=== PATIENT | male | born 1990 | race African-American/Black ===

== ENCOUNTER 2017-03-01 12:04 | Emergency (ER) | payer OTHER ==
[2017-03-01 12:17] VITALS: BP 155/87; PULSE 87; RESP 18; TEMP 99
--- NOTE | 2017-03-01 13:09 | ED ---
General Adult HPI - General Chief complaint: Urogenital Stated complaint: groin pain Time Seen by Provider: 03/01/17 12:20 Source: patient, RN notes reviewed Mode of arrival: ambulatory Limitations: no limitations - History of Present Illness Initial comments: This is a 26-year-old male who presents emergency Department with right testicle pain and enlargement over the last month. Patient states he's been out of the area for the month in the and he just got home 2 days ago so he thought he would have it checked out. Patient states he has not had any sexual contact with any new partners for quite a while. Patient denies any discharge. Patient denies any inguinal pain. Patient denies any dysuria hematuria urinary frequency. Patient denies any recent fever chills per patient denies any abdominal pain. - Related Data Home Medications Medication Instructions Recorded Confirmed No Known Home Medications [No 03/01/17 03/01/17 Known Home Medications] Allergies Allergy/AdvReac Type Severity Reaction Status Date / Time G6PD DEFICIENT Allergy Unknown Uncoded 03/01/17 13:20 Childhood Review of Systems ROS Statement: Those systems with pertinent positive or pertinent negative responses have been documented in the HPI. ROS Other: All systems not noted in ROS Statement are negative. Past Medical History Additional Past Medical History / Comment(s): g6pd deficient(blood disorder) History of Any Multi-Drug Resistant Organisms: None Reported Past Surgical History: Orthopedic Surgery Additional Past Surgical History / Comment(s): elbow Past Psychological History: No Psychological Hx Reported Smoking Status: Light tobacco smoker Past Alcohol Use History: Occasional Past Drug Use History: None Reported General Exam - General Exam Comments Initial Comments: GENERAL Patient is well-developed and well-nourished. Patient is in mild distress. EYES Patient's pupils are equal and round. Extraocular motion is intact SKIN Unremarkable NEURO The patient is alert and oriented 3 PYSCH Patient has normal interpersonal interactions. GENITALIA Left testicle is normal and right testicle is enlarged considerably and tender Limitations: no limitations Course Vital Signs 03/01/17 12:12 Temperature 99.0 F Pulse Rate 87 Respiratory 18 Rate Blood Pressure 155/87 O2 Sat by Pulse 98 Oximetry Medical Decision Making - Medical Decision Making Ultrasound shows a 4.3 x 3.9 x 3.1 cm right testicular mass. I spoke Dr. Dixon he wants to see the patient at 940 tomorrow morning. Chest x-ray was done shows no acute abnormality. Disposition Clinical Impression: Testicular mass Disposition: HOME SELF-CARE Condition: Good Additional Instructions: Follow up with Dr Breaux tomorrow 03/02/17 at 9:40 am. Referrals: None,Stated [Primary Care Provider] - 1-2 days Antonio Breaux MD [STAFF PHYSICIAN] - 1-2 days Time of Disposition: 15:32
--- NOTE | 2017-03-01 14:21 | US ---
EXAMINATION TYPE: US scrotum with doppler. Grayscale and color Doppler Duplex imaging performed of t he scrotum. DATE OF EXAM: 03/01/2017 COMPARISON: NONE CLINICAL HISTORY: Pain. Right testicular pain and swelling EXAM MEASUREMENTS: TESTICLES: Right Testicle: 5.7 x 3.6 x 4.0 cm Left Testicle: 3.6 x 2.0 x 2.2 cm EPIDIDYMIS HEAD: Right Epididymis: 1.0 x 1.3 x 1.2 cm Left Epididymis: 0.9 x 1.0 x 1.5 cm Doppler performed to assess for testicular vascularity; good bilateral color flow and waveforms are s een. There is no evidence of testicular torsion. Presence of hydroceles: no Presence of varicoceles: no Right testicle: 4.6 x 3.1 x 3.9cm hypoechoic solid vascular mass IMPRESSION: 1. There is a solid-appearing mass in the right testicle measuring 4.6 x 3.1 x 3.9 cm suspicious for malignancy.
--- NOTE | 2017-03-01 14:56 | XR ---
EXAMINATION TYPE: XR chest 2V DATE OF EXAM: 03/01/2017 COMPARISON: NONE HISTORY: Testicular cancer with difficulty in breathing. TECHNIQUE: Frontal and lateral views of the chest are obtained. FINDINGS: There is no focal air space opacity, pleural effusion, or pneumothorax seen. The cardiac silhouette size is within normal limits. The osseous structures are intact. IMPRESSION: No acute cardiopulmonary process.
== END 2017-03-01 15:52 | disposition home or self-care (01) ==
LOC: EC 12:04
DX: N50.9 Disorder of male genital organs, unspecified (principal); F17.200 Nicotine dependence, unspecified, uncomplicated; Z88.8 Allergy status to other drugs, medicaments and biological substances
CPT/HCPCS: 36415; 71020; 76870; 82105; 93975; 99284

== ENCOUNTER 2017-03-08 10:50 | Day surgery (SDC) | payer OTHER ==
[2017-03-03 14:53] VITALS: BMI 25.7
[~2017-03-08 10:50] MED LIST: DEXAMETHASONE SOD PHOSPHATE 10 MG/ML 1 ML VIAL IV ONE; LACTATED RINGERS 1,000 ML IV SCH; LIDOCAINE 1% 20 ML VIAL (10MG/ML) FOR IV START INTRADERMA PRN; MIDAZOLAM 2 MG/2 ML VIAL IV PRN; ONDANSETRON 4 MG/2 ML VIAL IVP ONE; SCOPOLAMINE 1.5MG/72HR PATCH TRANSDERM ONE; ceFAZolin 2 GM in SODIUM CHLORIDE 0.9% 100 ML IVPB ONE
[2017-03-08 11:30] LABS: Basophils % (A) 1 %; CH 32.4; Eosinophils # (A) 0.1 k/uL (0-0.7); Eosinophils % (A) 2 %; HDW 2.19; HGB 16.1 gm/dL (13.0-17.5); Luc # (Auto) 0.12; Luc % (Auto) 2; Lymphocytes # (A) 1.4 k/uL (1.0-4.8); Lymphocytes % (A) 24 %; MCH 31.5 pg (25.0-35.0); MCHC 32.9 g/dL (31.0-37.0); MCV 95.7 fL (80.0-100.0); Mean Platelet Volume 7.3; Monocytes # (A) 0.4 k/uL (0-1.0); Monocytes % (A) 6 %; Neutrophils # (A) 3.8 k/uL (1.3-7.7); Neutrophils % (A) 65 %; RBC 5.12 m/uL (4.30-5.90); RDW 12.9 % (11.5-15.5); WBC 5.8 k/uL (3.8-10.6)
[2017-03-08] MEDS ORDERED: BUPIVACAINE (PF) 0.5% 30 ML VIAL SQ ONE (12:39)
--- NOTE | 2017-03-08 13:01 | P.OP ---
Date of Procedure: 03/08/17 Preoperative Diagnosis: Right testicular mass Postoperative Diagnosis: Right testicular cancer Procedure(s) Performed: Right radical orchidectomy Implants: Anesthesia: FLAVIO Surgeon: Antonio Breaux Estimated Blood Loss (ml): 10 Pathology: other (Testicle and cord, right) Condition: stable Disposition: PACU Indications for Procedure: The patient is a 27-year-old gentleman who presented with a two-week history of a right testicular mass. He is seen in the emergency room. An ultrasound showed a solid right testicular mass. His examination confirmed that. He comes for radical orchiectomy. His markers are pending. Operative Findings: Description of Procedure: Patient is brought to the operating suite. He is given a general endotracheal anesthesia. A sterile prep and drape was administered. A right inguinal incision is made. I dissected over the external ring. The cord is surrounded and clamped. I then evaginated the testicle into the skin inguinal canal. I detached the gubernaculum with electrocautery. I then followed the cord structure up to the internal inguinal ring. It is divided into 2 sections vascular and the vas. Each section is clamped with a hemostat and then oversewn with a 2-0 silk. The cord and testicle are transected and removed from the wound. I then closed the external oblique fascia with interrupted 2-0 Vicryl. I protect the ilial inguinal nerve. Subcutaneous tissue with a 3-0 chromic and the skin with a 4-0 Vicryl. 10 mL of half percent Marcaine plain block is administered. The patient's awake and returned recovery in good condition The testicle was opened on the back table and was consistent with a testicular cancer. Pending the pathology as to final recommendations.
[2017-03-08 13:11] VITALS: TEMP 97.2
[2017-03-08] MEDS: HYDROmorphone 1 MG/ML 1 ML SYRINGE IVP PRN ×2 (13:14→13:22)
[2017-03-08 14:08] VITALS: RESP 18
[2017-03-08] MEDS ORDERED: HYDROcodone/APAP 5-325MG 1 EACH TAB PO ONE ×2 (14:30→15:31)
[2017-03-08 15:50] VITALS: BP 144/85; PULSE 63
== END 2017-03-08 16:09 | disposition home or self-care (01) ==
LOC: OR 10:50
PROVIDERS: ATTEND Urology
DX: C62.91 Malignant neoplasm of right testis, unspecified whether descended or undescended (principal); D55.0 Anemia due to glucose-6-phosphate dehydrogenase [G6PD] deficiency; F17.200 Nicotine dependence, unspecified, uncomplicated; I10 Essential (primary) hypertension
CPT/HCPCS: 54530; 85025; 88342; 88309; 86788; 88341; J1100; J0690; J2405; J1170

== ENCOUNTER 2017-03-09 22:24 | Emergency (ER) | payer OTHER ==
[2017-03-09] MEDS ORDERED: SODIUM CHLORIDE 0.9% 500 ML IV STA (23:17)
[2017-03-09] MEDS ORDERED: HYDROmorphone 1 MG/ML 1 ML SYRINGE IVP STA (23:17)
--- NOTE | 2017-03-09 23:44 | ED ---
General Adult HPI - General Chief complaint: Urogenital Stated complaint: Post op issues Time Seen by Provider: 03/09/17 23:13 Source: patient, RN notes reviewed Mode of arrival: ambulatory Limitations: no limitations - History of Present Illness Initial comments: 27 yo male presents to the ER with cc of right testicular pain. Patient recently had his right testicle removed yesterday by Dr. Dixon. Patient states this was for cancer. Patient states today he noticed that his testicle is very swollen and painful. Patient states that fever chills. Patient denies any changes in urination. Patient states that he was concerned due to his pain and swelling to the thought that he should be evaluated. Patient states is not currently having any other symptoms at this time.Patient denies any recent fever , chills, shortness of breath, chest pain, back pain, abdominal pain, nausea vomiting, numbness or tingling, dysuria or hematuria, constipation or diarrhea, headaches or visual changes, or any other current symptoms. - Related Data Previous Rx's Medication Instructions Recorded HYDROcodone/APAP 5-325MG [Points 1 tab PO Q4HR PRN #20 tab 03/08/17 5-325] Hydrocodone/Acetaminophen [Points 2 each PO Q6HR PRN #20 tab 03/10/17 5-325] Allergies Allergy/AdvReac Type Severity Reaction Status Date / Time G6PD DEFICIENT Allergy Unknown Uncoded 03/09/17 22:46 Childhood Review of Systems ROS Statement: Those systems with pertinent positive or pertinent negative responses have been documented in the HPI. ROS Other: All systems not noted in ROS Statement are negative. 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) certain things can trigger anemia, patient states only issue he ever had was with red wine History of Any Multi-Drug Resistant Organisms: None Reported Past Surgical History: Orthopedic Surgery Additional Past Surgical History / Comment(s): elbow, wisdom teeth Past Anesthesia/Blood Transfusion Reactions: No Reported Reaction Past Psychological History: No Psychological Hx Reported Smoking Status: Current some day smoker Past Alcohol Use History: Occasional Past Drug Use History: None Reported - Past Family History Mother Family Medical History: Cancer General Exam Limitations: no limitations General appearance: alert, in no apparent distress ENT exam: Present: normal exam, mucous membranes moist Neck exam: Present: normal inspection. Absent: tenderness, meningismus, lymphadenopathy Respiratory exam: Present: normal lung sounds bilaterally. Absent: respiratory distress, wheezes, rales, rhonchi, stridor Cardiovascular Exam: Present: regular rate, normal rhythm, normal heart sounds. Absent: systolic murmur, diastolic murmur, rubs, gallop, clicks GI/Abdominal exam: Present: soft, normal bowel sounds. Absent: distended, tenderness, guarding, rebound, rigid exam: Present: normal inspection (Swollen to the right side to the right side ), testicular tenderness (Right), scrotal swelling (rigfht), vertical testicular lie, circumcision Extremities exam: Present: normal inspection, full ROM, normal capillary refill. Absent: tenderness, pedal edema, joint swelling, calf tenderness Back exam: Present: normal inspection Neurological exam: Present: alert, oriented X3, CN II-XII intact Psychiatric exam: Present: normal affect, normal mood Skin exam: Present: warm, dry, intact, normal color. Absent: rash Course Vital Signs 03/09/17 22:38 Temperature 98.7 F Pulse Rate 92 Respiratory 18 Rate Blood Pressure 140/77 O2 Sat by Pulse 96 Oximetry Medical Decision Making - Medical Decision Making 27-year-old male presents with testicular pain after surgery. At this time we discussed labs and US. We discussed appears to be a hematoma following his procedure. We discussed ice and elevation. We discussed contacting urologist in am for re-eval. We discussed return parameters and questions. Patient in agreement with plan. All questions answered. Patient will be discharged home. - Lab Data Result diagrams: 03/10/17 00:00 03/10/17 00:00 Lab Results 03/10/17 03/10/17 03/10/17 Range/Units 00:00 00:00 00:00 WBC 10.5 (3.8-10.6) k/uL RBC 4.65 (4.30-5.90) m/uL Hgb 15.3 (13.0-17.5) gm/dL Hct 43.8 (39.0-53.0) % MCV 94.2 (80.0-100.0) fL MCH 32.9 (25.0-35.0) pg MCHC 34.9 (31.0-37.0) g/dL RDW 12.6 (11.5-15.5) % Plt Count 201 (150-450) k/uL Neutrophils % 68 % Lymphocytes % 23 % Monocytes % 6 % Eosinophils % 1 % Basophils % 0 % Neutrophils # 7.2 (1.3-7.7) k/uL Lymphocytes # 2.4 (1.0-4.8) k/uL Monocytes # 0.6 (0-1.0) k/uL Eosinophils # 0.1 (0-0.7) k/uL Basophils # 0.0 (0-0.2) k/uL Sodium 139 (137-145) mmol/L Potassium 3.8 (3.5-5.1) mmol/L Chloride 101 (98-107) mmol/L Carbon Dioxide 28 (22-30) mmol/L Anion Gap 10 mmol/L BUN 14 (9-20) mg/dL Creatinine 1.00 (0.66-1.25) mg/dL Est GFR (MDRD) Af Amer >60 (>60 ml/min/1.73 sqM) Est GFR (MDRD) Non-Af >60 (>60 ml/min/1.73 sqM) Glucose 92 (74-99) mg/dL Calcium 9.0 (8.4-10.2) mg/dL Total Bilirubin 0.5 (0.2-1.3) mg/dL AST 48 (17-59) U/L ALT 43 (21-72) U/L Alkaline Phosphatase 68 (38-126) U/L Total Protein 6.6 (6.3-8.2) g/dL Albumin 4.1 (3.5-5.0) g/dL Urine Color Yellow Urine Appearance Clear (Clear) Urine pH 7.0 (5.0-8.0) Ur Specific Champion 1.013 (1.001-1.035) Urine Protein Negative (Negative) Urine Glucose (UA) Negative (Negative) Urine Ketones Negative (Negative) Urine Blood Negative (Negative) Urine Nitrite Negative (Negative) Urine Bilirubin Negative (Negative) Urine Urobilinogen 3.0 (<2.0) mg/dL Ur Leukocyte Esterase Negative (Negative) Disposition Clinical Impression: Scrotal hematoma Disposition: HOME SELF-CARE Condition: Stable Instructions: Hematoma (ED) Additional Instructions: Please use medications as prescribed. If symptoms worsen or change return to ER. Contact your urologist in the AM for follow up. Prescriptions: Hydrocodone/Acetaminophen [Points 5-325] 2 each PO Q6HR PRN #20 tab PRN Reason: Pain Referrals: Antonio Breaux MD [STAFF PHYSICIAN] - 1-2 days Time of Disposition: 01:49
[2017-03-10 00:14] LABS: Basophils % (A) 0 %; CH 31.9; Eosinophils # (A) 0.1 k/uL (0-0.7); Eosinophils % (A) 1 %; HCT 43.8 % (39.0-53.0); HDW 2.22; HGB 15.3 gm/dL (13.0-17.5); Luc # (Auto) 0.14; Luc % (Auto) 1; Lymphocytes # (A) 2.4 k/uL (1.0-4.8); Lymphocytes % (A) 23 %; MCH 32.9 pg (25.0-35.0); MCHC 34.9 g/dL (31.0-37.0); MCV 94.2 fL (80.0-100.0); Mean Platelet Volume 7.5; Monocytes # (A) 0.6 k/uL (0-1.0); Monocytes % (A) 6 %; Neutrophils # (A) 7.2 k/uL (1.3-7.7); Neutrophils % (A) 68 %; RBC 4.65 m/uL (4.30-5.90); RDW 12.6 % (11.5-15.5); WBC 10.5 k/uL (3.8-10.6); WBC (Perox) 10.95
[2017-03-10 00:17] LABS: Appearance,Urine Clear (Clear); Bilirubin,Urine Negative (Negative); Glucose,Urine (UA) Negative (Negative); Ketones,Urine Negative (Negative); Leukocyte Esterase,Urine Negative (Negative); Nitrite,Urine Negative (Negative); Protein,Urine Negative (Negative); Specific Gravity,Urine 1.013 (1.001-1.035); UA Billing (MACRO vs. MICRO) CHEM
[2017-03-10 00:35] LABS: ALT 43 U/L (21-72); AST 48 U/L (17-59); Alkaline Phosphatase 68 U/L (38-126); Anion Gap 10 mmol/L; Blood Urea Nitrogen 14 mg/dL (9-20); Carbon Dioxide 28 mmol/L (22-30); Chloride 101 mmol/L (98-107); Glucose 92 mg/dL (74-99); Non-African American GFR(MDRD) >60 (>60 ml/min/1.73 sqM); Potassium 3.8 mmol/L (3.5-5.1); Sodium 139 mmol/L (137-145); Total Bilirubin 0.5 mg/dL (0.2-1.3); Total Protein 6.6 g/dL (6.3-8.2)
--- NOTE | 2017-03-10 01:22 | US ---
EXAM: US Scrotum CLINICAL HISTORY: Reason: Pain TECHNIQUE: Real-time ultrasound of the scrotum with color Doppler and image documentation. COMPARISON: Recent 03/01/17 scrotal ultrasound. FINDINGS: Right testicle: Interval right orchiectomy. There is now a large amount of avascular heterogeneous material with surrounding hypoechogenicity, within the enlarged right scrotal sac along with overlying scrotal soft tissue thickening. Left testicle: The left testis measures 3.9 x 2.4 x 1.9 cm and is uniform in appearance without evidence of torsion. Epididymides: Unremarkable on the left, absent on the right. Scrotum: Borderline left varicocele. IMPRESSION: 1. Large amount of heterogeneous material within the right scrotal sac with a surrounding rim of hypoechoic fluid, most likely representing the presence of a postoperative hematoma in this, with overlying scrotal soft tissue thickening. This could be correlated and followed clinically to resolution and/or guide further imaging follow-up as clinically indicated. 2. Normal appearance of the left testis, with note made of borderline left varicocele.
[2017-03-10] MEDS ORDERED: HYDROmorphone 1 MG/ML 1 ML SYRINGE IVP STA (01:57)
[2017-03-10 02:22] VITALS: BP 139/76; PULSE 81; RESP 16; TEMP 98.1
== END 2017-03-10 02:22 | disposition home or self-care (01) ==
LOC: EC 22:24
DX: N99.840 Postprocedural hematoma of a genitourinary system organ or structure following a genitourinary system procedure (principal); F17.200 Nicotine dependence, unspecified, uncomplicated; Z88.8 Allergy status to other drugs, medicaments and biological substances; Y83.8 Other surgical procedures as the cause of abnormal reaction of the patient, or of later complication, without mention of misadventure at the time of the procedure
CPT/HCPCS: 99284; 96374; 96376; 96361; 36415; 80053; 85025; 81003; 93975; 76870; J1170

== ENCOUNTER → 2017-03-10 | Outpatient (CLI) | payer OTHER ==
--- NOTE | 2017-03-10 14:55 | CT ---
EXAMINATION TYPE: CT abdomen pelvis w con DATE OF EXAM: 03/10/2017 COMPARISON: NONE HISTORY: Right testicular cancer status post removal. C 62.11, right side orchiectomy, G6PD deficient . CT DLP: 1089 mGycm Automated exposure control for dose reduction was used. TECHNIQUE: Helical acquisition of images was performed from the lung bases through the pelvis. CONTRAST: Performed with Oral Contrast and with IV Contrast, patient injected with 100 mL of Omnipaque 300. FINDINGS: LUNG BASES: No significant abnormality is appreciated. LIVER/GB: No significant abnormality is appreciated. PANCREAS: No significant abnormality is seen. SPLEEN: No significant abnormality is seen. ADRENALS: No significant abnormality is seen. KIDNEYS: No significant abnormality is seen. FREE AIR: No free air is visualized. RETROPERITONEAL ADENOPATHY: Just inferior to where the left renal vein meets the inferior vena cava there is a hypodense 2.8 x 2.3 x 4.1 cm mass. This is best visualized on series 2 image 27. This is j ust posterior to the duodenum. There is definite abutment and mass effect upon the inferior vena cava . No other abnormally enlarged retroperitoneal lymph nodes are identified. REPRODUCTIVE ORGANS: The prostate measures 4 cm in transverse dimension. There is a heterogeneous raymond earance to the right hemiscrotum which is felt to be related to a postoperative hematoma. There are s everal foci of subcutaneous air noted in the right groin felt to be postoperative. URINARY BLADDER: No significant abnormality is seen. PELVIC ADENOPATHY: None visualized. OSSEOUS STRUCTURES: No significant abnormality is seen. BOWEL: No significant abnormality is seen. OTHER: None IMPRESSION: JUST INFERIOR TO WHERE THE LEFT RENAL VEIN ENTERS INTO THE INFERIOR VENA CAVA THERE IS A 4 CM HYPODEN SE MASS. THIS IS HIGHLY CONCERNING FOR A FOCUS OF METASTASIS. NO OTHER SUSPICIOUS FOCI ARE IDENTIFIED ON THE CURRENT EXAMINATION. POSTOPERATIVE RIGHT HEMISCROTUM HEMATOMA.
== END ==
LOC: RADCTMAIN 13:58
PROVIDERS: ATTEND Urology
DX: C62.11 Malignant neoplasm of descended right testis (principal)
CPT/HCPCS: 74177; Q9967

== ENCOUNTER → 2017-03-29 | Outpatient (CLI) | payer OTHER ==
[2017-03-29 16:13] LABS: Basophils # (A) 0.1 k/uL (0-0.2); Basophils % (A) 1 %; CH 31.1; CHCM 32.8; Eosinophils # (A) 0.2 k/uL (0-0.7); Eosinophils % (A) 2 %; HCT 42.8 % (39.0-53.0); HDW 2.35; HGB 14.3 gm/dL (13.0-17.5); Luc # (Auto) 0.11; Luc % (Auto) 2; Lymphocytes # (A) 1.6 k/uL (1.0-4.8); Lymphocytes % (A) 23 %; MCH 31.8 pg (25.0-35.0); MCHC 33.4 g/dL (31.0-37.0); MCV 95.2 fL (80.0-100.0); Mean Platelet Volume 7.6; Monocytes # (A) 0.5 k/uL (0-1.0); Monocytes % (A) 7 %; Neutrophils # (A) 4.6 k/uL (1.3-7.7); Neutrophils % (A) 66 %; RBC 4.49 m/uL (4.30-5.90); RDW 13.1 % (11.5-15.5); WBC (Perox) 7.27
--- NOTE | 2017-03-29 16:28 | CT ---
EXAMINATION TYPE: CT chest w con DATE OF EXAM: 03/29/2017 COMPARISON: CT abdomen pelvis 03/10/2017 HISTORY: Patient has no chest complaints at time of service. Follow up study for known testicular CA . CT DLP: 609 mGycm Automated exposure control for dose reduction was used. CONTRAST: CT scan of the chest is performed with IV Contrast, patient injected with 100 mL of Omnipaque 300. FINDINGS: LUNGS: There is a nodule in the right upper lobe on axial image 22 measuring 5 to 6 mm in size which is not calcified. There is no pleural effusion or pneumothorax seen. The tracheobronchial tree is pa tent. MEDIASTINUM: There are no greater than 1 cm hilar or mediastinal lymph nodes. No pericardial effusi on is seen. AORTA: No additional significant abnormality is seen. OTHER: There is retroperitoneal adenopathy present.. IMPRESSION: Indeterminate right upper lobe pulmonary nodule. Retroperitoneal adenopathy compatible w ith patient's history of testicular carcinoma.
--- NOTE | 2017-03-29 16:58 | XR ---
EXAMINATION TYPE: XR chest 2V DATE OF EXAM: 03/29/2017 COMPARISON: Prior chest x-ray 03/01/[address] 03/29/2017 HISTORY: Testicular carcinoma, C 62.91 TECHNIQUE: Frontal and lateral views of the chest are obtained. FINDINGS: There is no focal air space opacity, pleural effusion, or pneumothorax seen. The cardiac silhouette size is within normal limits. The osseous structures are intact. IMPRESSION: No acute cardiopulmonary process. The small lung nodule seen on CT chest same date is no t evident on plain film.
== END | disposition home or self-care (01) ==
LOC: RADCTMAIN 15:44
PROVIDERS: ATTEND Internal Medicine Hematology & Oncology
DX: R91.1 Solitary pulmonary nodule (principal); C62.91 Malignant neoplasm of right testis, unspecified whether descended or undescended; R59.0 Localized enlarged lymph nodes
CPT/HCPCS: 85025; 71020; 71260; 36415; Q9967

== ENCOUNTER 2017-04-06 08:01 | Day surgery (SDC) | payer OTHER ==
[2017-03-31 10:02] VITALS: BMI 25.7
[~2017-04-06 08:01] MED LIST changes: -MIDAZOLAM 2 MG/2 ML VIAL IV PRN
[2017-04-06] MEDS ORDERED: HEPARIN SODIUM,PORCINE 5,000 UNIT in SODIUM CHLORIDE 0.9% 500 ML IV ONE (09:00)
[2017-04-06] MEDS ORDERED: MIDAZOLAM 2 MG/2 ML VIAL ONE (09:23)
[2017-04-06] MEDS ORDERED: fentaNYL (PF) 50 MCG/ML 2 ML AMP ONE (09:23)
[2017-04-06] MEDS ORDERED: LIDOCAINE 1% INJ 10MG/ML (20 ML MDV) ONE (09:23)
[2017-04-06] MEDS ORDERED: PROPOFOL 10 MG/ML 20 ML VIAL IV ONE (09:23)
[2017-04-06] MEDS ORDERED: HEPARIN SODIUM,PORCINE 100 UNIT/ML 5 ML VIAL IV ONE ×3 (09:50)
[2017-04-06] MEDS ORDERED: LIDOCAINE (PF) 10 MG/ML 2 ML VIAL SQ ONE ×3 (09:50)
[2017-04-06] MEDS ORDERED: IOHEXOL 350 MG/ML 50ML BOTTLE INJ ONE ×2 (09:51)
[2017-04-06] MEDS ORDERED: BUPIVACAINE (PF) 0.5% 30 ML VIAL SQ ONE ×3 (09:52)
[2017-04-06] MEDS ORDERED: LACTATED RINGERS 1,000 ML IV ONE (10:12)
[2017-04-06 10:58] VITALS: TEMP 97.2
[2017-04-06] MEDS: fentaNYL (PF) 50 MCG/ML 2 ML AMP IV PRN ×2 (11:09→11:21)
[2017-04-06 11:23] VITALS: RESP 18
--- NOTE | 2017-04-06 11:30 | XR ---
EXAMINATION TYPE: XR chest 1V confirm line [facility] DATE OF EXAM: 04/06/2017 COMPARISON: NONE INDICATION: Mediport placement TECHNIQUE: Single frontal view of the chest is obtained. FINDINGS: The heart size is normal. The pulmonary vasculature is normal. The lungs are clear. No pneumothorax is evident. A catheter is present on the right with the tip in the distal superior ve na cava region. IMPRESSION: 1. No acute pulmonary process. 2. No pneumothorax post line placement. Tip is in the distal superior vena cava near the right atrial junction.
[2017-04-06 12:26] VITALS: BP 121/58; PULSE 52
[2017-04-06] MEDS ORDERED: HYDROcodone/APAP 5-325MG 1 EACH TAB PO ONE (12:34)
--- NOTE | 2017-04-06 12:38 | FL ---
EXAMINATION TYPE: FL guided central line placemt HISTORY: Fluoroscopy time Impression: 1. Fluoroscopy support provided to the referring physician. 1 minute and one second fluoroscopy provi ded..
--- NOTE | 2017-04-06 14:05 | P.OP ---
Date of Procedure: 04/06/17 Preoperative Diagnosis: Testicular cancer need for chemotherapy Postoperative Diagnosis: Testicular cancer, need for chemotherapy Procedure(s) Performed: Right internal jugular Mediport placement with ultrasound guidance and fluoroscopy confirmation Implants: 8-[place] [employer] Mediport Anesthesia: GELACIOA Surgeon: Jennifer Barboza Estimated Blood Loss (ml): 15 Pathology: none sent Condition: stable Disposition: PACU Indications for Procedure: Operative Findings: 61 seconds of fluoroscopy Description of Procedure: The patient was brought to the operating room and placed in supine position with both arms tucked. A footboard was placed. Chlorhexidine was used to prep the neck followed by application of sterile drapes. A timeout was performed to verify correct patient and correct procedure. Patient was confirmed to receive perioperative IV antibiotics and VTE prophylaxis. An ultrasound was performed of the right neck to identify the carotid artery and internal jugular vein. The internal jugular vein was compressible and patent . Photodocumentation was made. Local anesthetic was infiltrated to create a field block. Seldinger technique was used and the internal jugular vein was accessed under direct ultrasound guidance. There was good backflow of dark venous blood. The guidewire was inserted and fluoroscopic images obtained to confirm the tip in SVC. The needle was removed followed by insertion of a dilator peel-away sheath. Local anesthetic was infiltrated along the inferior aspect of the right clavicle. A 2.5 cm skin incision was made and dissection was carried up to the pectoralis major muscle. A pocket was created for the port. The peel-away was cracked and removed with the port in appropriate position as confirmed by fluoroscopy and dye. A Tanisha was used to tunnel from the expected port site all the way up to the small incision in the neck and the catheter was pulled down into the cavity and then, once cut to size and attached to the port. The connector was clipped shut into position after which fluoroscopy was done positioning. We did use radiopaque dye for this roughly 10 mL. Once that was done subcutaneous tissue in the right pocket area was closed with 2-0 Vicryl. This was done after placing stay sutures with 3-0 Prolene for the port. Skin was closed with 4-0 Monocryl for the port site as well as the initial access site. Dermabond was applied slight pressure dressing in the neck as well as Telfa with Tegaderm for the right pectoral region. Total fluoroscopic time was 61 seconds. Prior to leaving the operating room fluoroscopy showed the catheter tip in the appropriate site patient will get a chest x-ray in recovery. X-ray done in recovery confirmed the tip of the MediPort catheter at the junction of the superior vena cava and the atrium there was no pneumothorax Plan - Discharge Summary New Discharge Prescriptions: New HYDROcodone/APAP 5-325MG [Jackson 5-325] 1 tab PO Q4HR PRN #10 tab PRN Reason: Pain No Action HYDROcodone/APAP 5-325MG [Jackson 5-325] 1 tab PO Q4HR PRN #20 tab PRN Reason: Pain Control Hydrocodone/Acetaminophen [Jackson 5-325] 2 each PO Q6HR PRN #20 tab PRN Reason: Pain Discharge Medication List HYDROcodone/APAP 5-325MG [Jackson 5-325] 1 tab PO Q4HR PRN #20 tab 03/08/17 [Rx] Hydrocodone/Acetaminophen [Jackson 5-325] 2 each PO Q6HR PRN #20 tab 03/10/17 [Rx] HYDROcodone/APAP 5-325MG [Jackson 5-325] 1 tab PO Q4HR PRN #10 tab 04/06/17 [Rx] Follow up Appointment(s)/Referral(s): Jennifer Barboza MD [STAFF PHYSICIAN] - 04/12/17 10:00 am Patient Instructions/Handouts: *Surgery [facility] - (Anesthesia) Discharge Instructions Outpatient Surgery Activity/Diet/Wound Care/Special Instructions: regular diet Shower in 24 hours Discharge Disposition: HOME SELF-CARE
== END 2017-04-06 13:16 | disposition home or self-care (01) ==
LOC: OR 08:01
PROVIDERS: ATTEND Surgery
DX: C62.91 Malignant neoplasm of right testis, unspecified whether descended or undescended (principal); G47.33 Obstructive sleep apnea (adult) (pediatric); F17.200 Nicotine dependence, unspecified, uncomplicated; Z99.89 Dependence on other enabling machines and devices; Z79.891 Long term (current) use of opiate analgesic; Z86.2 Personal history of diseases of the blood and blood-forming organs and certain disorders involving the immune mechanism; Z80.3 Family history of malignant neoplasm of breast; Z90.79 Acquired absence of other genital organ(s)
CPT/HCPCS: 77001; 36561; C1788; J2250; J2001 ×2; J1642; J1100; J0690; J2405; J3010; J2704; J1644; Q9967

== ENCOUNTER 2017-04-08 17:47 | Emergency (ER) | payer OTHER ==
[2017-04-08 18:13] VITALS: BP 124/60; PULSE 76; RESP 18; TEMP 98.1
--- NOTE | 2017-04-08 18:51 | ED ---
General Adult HPI - General Chief complaint: Urogenital Stated complaint: MALE , Hx Sx BLEEDING AND PAIN Time Seen by Provider: 04/08/17 18:24 Source: patient, RN notes reviewed, old records reviewed Mode of arrival: ambulatory Limitations: no limitations - History of Present Illness Initial comments: Chief complaint history of present illness 27-year-old female who 1 month ago today had a right orchiectomy for testicular cancer. He reports after having had the surgery he did develop what sounds like a large hematoma in the scrotum. Approximately the size of a grapefruit. Since then the swelling has gone down to the size of a baseball. For the past day or 2 has been a small erosion for whole that's allowing what appears to be the old blood to evacuate from the scrotum. He does not any fever. The size of the hematoma is getting smaller as a danger going on - Related Data Previous Rx's Medication Instructions Recorded Hydrocodone/Acetaminophen [[place] 2 each PO Q6HR PRN #20 tab 03/10/17 5-325] Allergies Allergy/AdvReac Type Severity Reaction Status Date / Time G6PD DEFICIENT Allergy Unknown Uncoded 03/31/17 09:46 Childhood Review of Systems ROS Statement: Those systems with pertinent positive or pertinent negative responses have been documented in the HPI. Review of systems no other complaints other than swollen bleeding right scrotum. Past medical problems testicular cancer with orchiectomy one month ago. He also has G6 PD deficiency. He's had wisdom teeth removed and orthopedic surgery on his elbow. Family history none reported. ROS Other: All systems not noted in ROS Statement are negative. 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) certain things can trigger anemia, patient states only issue he ever had was with red wine; Testicular CA DX 03/04 History of Any Multi-Drug Resistant Organisms: None Reported Past Surgical History: Orthopedic Surgery Additional Past Surgical History / Comment(s): elbow, wisdom teeth Past Anesthesia/Blood Transfusion Reactions: No Reported Reaction Past Psychological History: No Psychological Hx Reported Smoking Status: Current some day smoker Past Alcohol Use History: Occasional Past Drug Use History: None Reported - Past Family History Mother Family Medical History: Cancer General Exam - General Exam Comments Initial Comments: General: The patient is awake and alert, in no distress, and does not appear acutely ill. Presents because he has bleeding from the scrotum post orchiectomy. Vital signs temperature 90.1 pulse 76 respiratory rate 18 pulse ox on percent room air blood pressure 124/ Gastrointestinal: And genitalia; No abdominal pain no nausea no vomiting no trouble difficulty urinating or bowel movements. Patient has a baseball-sized hematoma on the right scrotum post orchiectomy for cancer. It is draining from a small hole appears to be blood from a previous hematoma which the patient reports his twice a size of this now. Examination finds her to be tender. Is decreasing in size as the hematoma bleeds through the small hole. As necessary for the patient to squeeze to get blood out. I discussed the situation with on-call urologist Dr. Schwab. He recommends allowing just the old blood from the hematoma to come out under sterile bandages and provided the scrotum empties and does not get larger with his surgeon when the office opens in the morning on Monday. Limitations: no limitations Course Vital Signs 04/08/17 18:09 Temperature 98.1 F Pulse Rate 76 Respiratory 18 Rate Blood Pressure 124/60 O2 Sat by Pulse 100 Oximetry Medical Decision Making - Medical Decision Making Place sterile absorptive material next to the scrotum as the hematoma evacuated self. Follow-up with Dr. Dixon on Monday or return emergency room as needed. Disposition Clinical Impression: Hematoma of scrotum, S/P orchiectomy Disposition: HOME SELF-CARE Condition: Fair Instructions: Hematoma (ED) Additional Instructions: Allow the hematoma to drain into a sterile material. Follow-up with Dr. Dixon on Monday or return emergency room as needed. If the hematoma gets larger rather than smaller return emergency room immediately Referrals: Yao Vaughan DO [Primary Care Provider] - 1-2 days Time of Disposition: 18:50
== END 2017-04-08 19:04 | disposition home or self-care (01) ==
LOC: EC 17:47
DX: N99.840 Postprocedural hematoma of a genitourinary system organ or structure following a genitourinary system procedure (principal); F17.200 Nicotine dependence, unspecified, uncomplicated; Z85.47 Personal history of malignant neoplasm of testis; Z88.8 Allergy status to other drugs, medicaments and biological substances; Y83.8 Other surgical procedures as the cause of abnormal reaction of the patient, or of later complication, without mention of misadventure at the time of the procedure
CPT/HCPCS: 99283

== ENCOUNTER → 2017-12-28 | Outpatient (CLI) | payer OTHER ==
--- NOTE | 2017-12-28 11:52 | CT ---
EXAMINATION TYPE: CT abdomen pelvis w con DATE OF EXAM: 12/28/2017 COMPARISON: 07/12/2017 and 03/10/2017. CT chest 03/29/2017. HISTORY: 27-year-old male Testicular CA and Lymphadenopathy. Last chemotherapy May 2017. Patien t is status post right orchiectomy. TECHNIQUE: Contiguous axial scanning of the abdomen and pelvis following administration of 100 ml Omn ipaque 300 IV contrast. Delayed images through the kidneys and coronal/sagittal reconstructions perf ormed. CT DLP: 1102 mGycm Automated exposure control for dose reduction was used. FINDINGS: Heart is normal size without pericardial effusion. In retrospect, a tiny 3 mm peripheral left basilar pulmonary nodule axial image 5 is unchanged from . No pleural effusion. No focal liver lesion or biliary ductal dilatation. Portal venous system is patent. Gallbladder, adrenal glands, kidneys, spleen, pancreas appear within normal limits. Some scattered prominent mesenteric lymph nodes are noted measuring up to 5 mm, for example, coronal image 26. Normal appendix. Oral contrast has progressed to the rectum. No dilated small bowel, free fluid, or f ree air. Upper abdominal aorta caval lymph node (axial image 26) measures 7 mm (versus 8 mm on 07/12/2017 and up to 2.8 cm on 03/10/2017). However, an adjacent nonenlarged 5 mm aortocaval lymph node, axial image 29 may be new. Otherwise, no other retroperitoneal lymphadenopathy seen. Bladder is urine distended. Prostate gland measures 4.2 cm wide. No abnormal fluid collection in the pelvis or pelvic lymphadenopathy seen. Right orchiectomy changes. Bones: No osseous destructive process. IMPRESSION: 1. IN RETROSPECT, A TINY 3 MM LEFT BASILAR PULMONARY NODULE IS UNCHANGED FROM 03/29/2017. 2. STABLE UPPER ABDOMINAL AORTOCAVAL LYMPH NODE AT 7 MM ( COMPARED TO 07/12/2017). FINDING COMPATIB LE WITH SITE OF TREATED DISEASE. 3. HOWEVER, A SMALL NONENLARGED 5 MM AORTOCAVAL LYMPH NODE JUST BELOW IS NEW. THIS IS NONSPECIFIC AND MAY BE A REACTIVE NODE. FOLLOW-UP CLINICALLY INDICATED.
== END | disposition home or self-care (01) ==
LOC: RADCTMAIN 08:08
PROVIDERS: ATTEND Internal Medicine Hematology & Oncology
DX: C62.91 Malignant neoplasm of right testis, unspecified whether descended or undescended (principal)
CPT/HCPCS: 74177; Q9967

== ENCOUNTER → 2018-05-22 | Outpatient (CLI) | payer OTHER ==
--- NOTE | 2018-05-22 18:18 | CONS ---
CONSULTATION This is a consultation for sleep apnea. Rafa is a 28-year-old [employer] who was been stationed here in [place]. Prior to that, the patient was in [place]. Around 2 years ago, he got diagnosed having obstructive sleep apnea. A sleep study was done in [place] and at that time, the patient was found to have mild SHA with an AHI of 13.2, and based on that, the patient was given a CPAP unit. Currently he has a Respironics DreamWear at a pressure of 9 cm of water. I checked the compliance data and the patient has not used his machine for the past 30 days, as the patient does not have any of his supplies, masks and tubings. He is coming in to establish himself to our office and proceed with his treatment, asking for new CPAP supplies. He has no other complaints. He goes to bed around 9:30 p.m., wakes up at 6:00 a.m. in the morning. No major hypersomnia or sleepiness while on CPAP therapy and he claims that he was benefitting from the treatment. He drinks alcohol socially. No major hypersomnia or sleepiness during the day unless he does not use his CPAP machine and states that his snoring has completely subsided while on treatment. I was able to obtain the records from the sleep center in [place], indicating that he has sleep apnea; mild, yet symptomatic. No evidence of any significant periodic limb movements. No evidence of any significant nocturnal oxygen desaturation. He had moderate degree of snoring. PAST MEDICAL HISTORY: Obstructive sleep apnea and G6PD deficiency. SURGICAL HISTORY: Includes wisdom teeth removal, carpal carpal tunnel release. DRUG ALLERGIES: Not known. OUTPATIENT MEDICATION LIST: None. SOCIAL HISTORY: Smokes cigars, drinks alcohol socially. No history of IV drugs. FAMILY HISTORY: Negative for sleep apnea. REVIEW OF SYSTEMS: A 12-point review of system was done. Positive findings are mentioned above in history of present illness. BP is 119/74, pulse 80, respirations 16, temperature 98.5, saturation 97% on room air. Height is 6 feet, weight is 204, BMI 27.6, neck size 16-1/2 inches. GENERAL APPEARANCE: Calm, comfortable. Head is atraumatic, normocephalic. Neck is supple. No JVD. No goiter or neck masses. Mallampati class III-IV. LUNGS: Clear to auscultation. HEART: Sounds are regular rate and rhythm. Normal S1, S2. No S3, S4. No murmurs. ABDOMEN: Soft, nontender. No organomegaly. EXTREMITIES: No edema. No cyanosis or clubbing. NEUROLOGICAL: Alert and oriented x3. IMPRESSION: 1. Obstructive sleep apnea, mild in severity, with an apnea-hypopnea index of 13.2 based on the sleep study that was done in 2014 in [place]. 2. Moderate snoring. 3. Chronic hypersomnia and sleepiness due to obstructive sleep apnea. PLAN: 1. I reviewed the patient's CPAP supplies, including his mask and I was able to fit him with a Wisp nose mask. 2. Will keep the CPAP pressure at the same level at 9 cm of water. 3. Renew CPAP supplies, including new tubing and filters. 4. See me back in a year's time in follow up. I do have all the documentation regarding the presence of obstructive sleep apnea from the sleep center in [place]. MMODL / IJN: [id number] /
== END | disposition home or self-care (01) ==
LOC: SLEEP 15:09
PROVIDERS: ATTEND Internal Medicine Critical Care Medicine
DX: G47.33 Obstructive sleep apnea (adult) (pediatric) (principal); Z99.89 Dependence on other enabling machines and devices; F17.290 Nicotine dependence, other tobacco product, uncomplicated
CPT/HCPCS: 99201

== ENCOUNTER → 2018-07-05 | Outpatient (CLI) | payer OTHER ==
--- NOTE | 2018-07-05 10:58 | CT ---
EXAMINATION TYPE: CT ChestAbdPelvis w con DATE OF EXAM: 07/05/2018 COMPARISON: NONE 03/29/[address] abdomen pelvis dated 07/12/2017 and 12/28/2017 HISTORY: F/u to chemo for testicular ca. Last chemo June 05, 2017. CT DLP: 1582 mGycm. Automated Exposure Control for Dose Reduction was Utilized. CONTRAST: CT scan of the thorax, abdomen and pelvis is performed with IV Contrast, patient injected with 100 mL of Isovue 300. FINDINGS: LUNGS: There is a stable approximately 5 mm right upper lobe pulmonary nodule in comparison to the pr ior of 03/29/2017. This noncalcified and is marked on series 4 image 22. There is also a 3 mm solid pu lmonary nodule on series 4 image 19 that is more conspicuous on today's examination but retrospective ly present on the prior. This may be due to slice selection given its very small size. Lastly a 3 mm subpleural pulmonary nodule is redemonstrated on series 4 image 47 with no interval growth. MEDIASTINUM: There are no greater than 1 cm hilar or mediastinal lymph nodes. Calcified right suprah ilar lymph nodes are seen, unchanged from the prior. No pericardial effusion is seen. The previously seen enlarged lymph node between the left common carotid and subclavian vessel above the aortic arch is no longer appreciable. Additionally superior mediastinal pretracheal lymph node seen on the prior as entirely resolved. OTHER: Minimal bilateral retroareolar gynecomastia is seen. This appears symmetric. LIVER/GB: No significant abnormality is appreciated. PANCREAS: No significant abnormality is seen. No pancreatic ductal dilatation. SPLEEN: No significant abnormality is seen. No splenomegaly. ADRENALS: No significant abnormality is seen. KIDNEYS: No significant abnormality is seen. Kidneys enhance symmetrically without hydronephrosis. BOWEL: Incidental note is made of a small bowel to small bowel (entero-enteral intussusception). GENITAL ORGANS: No gross abnormality seen. LYMPH NODES: No greater than 1cm abdominal or pelvic lymph nodes are appreciated. Specifically when c ompared to the prior exam the 5 mm lymph node on the prior on series 3 image 26 is now seen on series 3 image 72 measuring 5 mm, decreased in size. The second previously measured aortocaval lymph node n ow seen on series 3 image 75 and previously seen in series 3 image 29 currently measures 3 mm and pre viously measured 5 mm, also decrease in size. OSSEOUS STRUCTURES: No significant abnormality is seen. IMPRESSION: 1. Resolution of the previously seen mediastinal adenopathy and retroperitoneal adenopathy. No enlarg ed lymph nodes in the chest, abdomen, or pelvis. Decrease in size of the subcentimeter aortocaval lym ph nodes measured on the prior exam. 2. Incidentally noted left mid abdominal small bowel to small bowel intussusception, typically clinic ally inconsequential and self-limiting. 3. Stable 5 mm right upper lobe pulmonary nodule, 3 mm left lower lobe pulmonary nodule and punctate left upper lobe 3 mm pulmonary nodule, retrospectively also unchanged. Continued surveillance is aleshia mmended for these nodules.
== END | disposition home or self-care (01) ==
LOC: RADCTMAIN 08:07
PROVIDERS: ATTEND Internal Medicine Hematology & Oncology
DX: C62.91 Malignant neoplasm of right testis, unspecified whether descended or undescended (principal); R91.8 Other nonspecific abnormal finding of lung field
CPT/HCPCS: 71260; 74177; Q9967

== ENCOUNTER 2018-08-07 16:44 | Emergency (ER) | payer OTHER ==
[2018-08-07 17:01] VITALS: BP 139/82; PULSE 77; RESP 20; TEMP 98.3
--- NOTE | 2018-08-07 17:10 | ED ---
Wound/Laceration HPI - General Chief Complaint: Wound/Laceration Stated Complaint: hand lac-[facility] Time Seen by Provider: 08/07/18 17:03 Source: patient, RN notes reviewed, old records reviewed Mode of arrival: ambulatory Limitations: no limitations - History of Present Illness Initial Comments: Patient is a 28-year-old male working at the [employer] presents with a laceration over his left second digit. Patient reports that he has full range of motion of the finger. Tetanus shot is up-to-date. Patient reports that it was caught on a pole that he was working on.Patient denies any recent fever, chills, shortness of breath, chest pain, back pain, abdominal pain, nausea vomiting, numbness or tingling, dysuria or hematuria, constipation or diarrhea, headaches or visual changes, or any other current symptoms - Related Data Home Medications Medication Instructions Recorded Confirmed No Known Home Medications 04/08/17 08/07/18 Allergies Allergy/AdvReac Type Severity Reaction Status Date / Time G6PD DEFICIENT Allergy Unknown Uncoded 08/07/18 17:01 Childhood Review of Systems ROS Statement: Those systems with pertinent positive or pertinent negative responses have been documented in the HPI. ROS Other: All systems not noted in ROS Statement are negative. 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) certain things can trigger anemia, patient states only issue he ever had was with red wine; Testicular CA DX 03/04 History of Any Multi-Drug Resistant Organisms: None Reported Past Surgical History: Orthopedic Surgery Additional Past Surgical History / Comment(s): elbow, wisdom teeth Past Anesthesia/Blood Transfusion Reactions: No Reported Reaction Past Psychological History: No Psychological Hx Reported Smoking Status: Former smoker Past Alcohol Use History: Occasional Past Drug Use History: None Reported - Past Family History Mother Family Medical History: Cancer General Exam - General Exam Comments Initial Comments: Pleasant 28-year-old male. Alert and oriented. No acute distress. Limitations: no limitations General appearance: alert, in no apparent distress Head exam: Present: atraumatic, normocephalic, normal inspection Eye exam: Present: normal appearance ENT exam: Present: normal exam, mucous membranes moist Neck exam: Present: normal inspection. Absent: tenderness, meningismus, lymphadenopathy Respiratory exam: Present: normal lung sounds bilaterally. Absent: respiratory distress, wheezes, rales, rhonchi, stridor Cardiovascular Exam: Present: regular rate, normal rhythm, normal heart sounds. Absent: systolic murmur, diastolic murmur, rubs, gallop, clicks GI/Abdominal exam: Present: soft, normal bowel sounds. Absent: distended, tenderness, guarding, rebound, rigid Extremities exam: Present: normal inspection, full ROM, normal capillary refill , other (Patient has a 2 cm laceration over the left second proximal digit. Full range of motion noted. Normal sensation.). Absent: tenderness, pedal edema, joint swelling, calf tenderness Back exam: Present: normal inspection Neurological exam: Present: alert, oriented X3, CN II-XII intact Psychiatric exam: Present: normal affect, normal mood Course Vital Signs 08/07/18 16:58 Temperature 98.3 F Pulse Rate 77 Respiratory 20 Rate Blood Pressure 139/82 O2 Sat by Pulse 98 Oximetry Procedures - Laceration Laceration #1 Site: hand (left second digit) Size (cm): 2 Description: linear Anesthetic Used: lidocaine 1% Anesthesia Technique: local infiltration Amount (mls): 2 Pre-repair: wound explored, irrigated extensively Type of Sutures: nylon Size of Sutures: 5-0 Number of Sutures: 2 Technique: simple, interrupted Patient Tolerated Procedure: well, no complications Medical Decision Making - Medical Decision Making Oklkqt-lvel-cud male presents at the left hand laceration. Patient's wound was cleansed with iodine, and closed with 2 sutures. Discussed monitoring for infection. Laceration is superficial and he does have full range of motion noted of the finger. Normal capillary refill and sensation. Patient will be discharged at this time with suture instructions. All questions answered return parameters were discussed. Disposition Clinical Impression: Hand laceration Disposition: HOME SELF-CARE Condition: Good Instructions: Laceration (ED) Additional Instructions: Please return to the emergency room in 8-10 days to have sutures removed. Please leave wound covered for the first 24-48 hours and then leave open to air after that time. Please use clean soap and water to clean the suture area to prevent scabbing over the top of your sutures. Please watch for any signs of infection which may include but not limited to increased pain, swelling, redness , fever or chills. Please return to the emergency room if any signs of infection do occur. Please return to the emergency room for any other concerns or complications. Is patient prescribed a controlled substance at d/c from ED?: No Referrals: Yao Vaughan DO [Primary Care Provider] - 1-2 days Time of Disposition: 17:11
== END 2018-08-07 17:30 | disposition home or self-care (01) ==
LOC: EC 16:44
DX: S61.211A Laceration without foreign body of left index finger without damage to nail, initial encounter (principal); Z87.891 Personal history of nicotine dependence; Z85.47 Personal history of malignant neoplasm of testis; Z98.890 Other specified postprocedural states; Z91.048 Other nonmedicinal substance allergy status; W26.8XXA Contact with other sharp object(s), not elsewhere classified, initial encounter; Y92.69 Other specified industrial and construction area as the place of occurrence of the external cause; Y99.0 Civilian activity done for income or pay
CPT/HCPCS: 12001; 99283

== ENCOUNTER → 2019-01-03 | Outpatient (CLI) | payer OTHER ==
--- NOTE | 2019-01-03 11:42 | CT ---
EXAMINATION TYPE: CT abdomen pelvis w con DATE OF EXAM: 01/03/2019 COMPARISON: 07/05/2018 HISTORY: Testiculare cancer CT DLP: 756.10 mGycm CONTRAST: CT scan of the abdomen and pelvis is performed with Oral Contrast and with IV Contrast, patient injec vanessa with 100 ml mL of Isovue 300. FINDINGS: LUNG BASES-: No visible nodule. No infiltrate. LIVER/GB: No calcified gallstones. No space occupying hepatic lesion. Biliary tree is of normal ca liber. PANCREAS: No inflammation. No distinct mass. SPLEEN: No splenic enlargement. No lesion seen. ADRENALS: No nodule. No thickening. KIDNEYS/BLADDER: No hydronephrosis. No nephrolithiasis. No distinct renal mass. Urinary bladder g rossly unremarkable. BOWEL: Normal appendix. Normal bowel caliber. No inflammation. GENITAL ORGANS: No gross abnormality. LYMPH NODES: No greater than 1cm abdominal or pelvic lymph nodes are appreciated. AORTA: No significant abnormality. OSSEOUS STRUCTURES: No significant abnormality is seen. OTHER: No significant additional abnormality is seen. IMPRESSION: 1. No evidence for metastatic disease.
== END ==
LOC: RADCTMAIN 09:40
PROVIDERS: ATTEND Internal Medicine Hematology & Oncology
DX: C62.91 Malignant neoplasm of right testis, unspecified whether descended or undescended (principal)
CPT/HCPCS: 74177; Q9967

== ENCOUNTER → 2019-07-18 | Outpatient (CLI) | payer OTHER ==
--- NOTE | 2019-07-18 13:36 | XR ---
EXAMINATION TYPE: XR cervical spine w flex/ext DATE OF EXAM: 07/18/2019 COMPARISON: NONE HISTORY: Pain TECHNIQUE: Eight views are submitted routine flexion and extension lateral views. FINDINGS: The odontoid is intact. There are no compression deformities. The prevertebral soft tissue structur es are within normal limits. Alignment remains stable in flexion and extension views. Oblique views are somewhat limited due to positioning for assessment of the neural foramina. IMPRESSION: 1. No acute process. If symptoms persist consider MRI to assess for disc herniation.
== END | disposition home or self-care (01) ==
LOC: RADXRMAIN 12:48
PROVIDERS: ATTEND Family Medicine
DX: M54.2 Cervicalgia (principal)
CPT/HCPCS: 72052

== ENCOUNTER → 2019-08-09 | Outpatient (CLI) | payer OTHER ==
--- NOTE | 2019-08-09 11:57 | CT ---
EXAMINATION TYPE: CT abdomen pelvis w con DATE OF EXAM: 08/09/2019 COMPARISON: 01/03/2019 HISTORY: Follow up for testicular cancer CT DLP: 958.9 mGycm Automated exposure control for dose reduction was used. TECHNIQUE: Helical acquisition of images was performed from the lung bases through the pelvis. CONTRAST: Performed with Oral Contrast and with IV Contrast, patient injected with 100 mL mL of Isovue 300. FINDINGS: LUNG BASES: Stable 2 mm subpleural left lower lobe pulmonary nodule on series 4 image 5. LIVER/GB: Hepatic parenchyma is diffusely hypoattenuated in comparison to that of the spleen, most co mmonly seen in hepatic steatosis. This finding limits evaluation for hepatic masses. No gross evidenc e of hepatic mass is seen. No intrahepatic biliary ductal dilatation. No cholelithiasis. PANCREAS: No significant abnormality is seen. SPLEEN: No significant abnormality is seen. No splenomegaly. ADRENALS: No significant abnormality is seen. KIDNEYS: Kidneys enhance and excrete symmetrically. No hydronephrosis. FREE AIR: No free air is visualized. URINARY BLADDER: No significant abnormality is seen. PELVIC ADENOPATHY: Greater than 1 cm short axis lymph node is seen in the abdomen or pelvis, particu larly within the retroperitoneum. OSSEOUS STRUCTURES: Mild degenerative disc disease at L5-S1. BOWEL: No dilated large or small bowel. OTHER: Diastases recti is seen. IMPRESSION: 1. NO ENLARGED LYMPH NODES ARE SEEN IN THE ABDOMEN OR PELVIS, PARTICULARLY WITHIN THE RETROPERITONEUM . NO RECURRENT ADENOPATHY. 2. NO NEW EVIDENCE OF METASTATIC DISEASE WITHIN THE ABDOMEN OR PELVIS. 3. STABLE LEFT BASILAR PULMONARY NODULE (2 MM).
== END | disposition home or self-care (01) ==
LOC: RADCTMAIN 09:03
PROVIDERS: ATTEND Internal Medicine Hematology & Oncology
DX: C62.91 Malignant neoplasm of right testis, unspecified whether descended or undescended (principal)
CPT/HCPCS: 74177; Q9967 ×2